=== PATIENT | male | born 1950 | race Hispanic/Latino ===

== ENCOUNTER 2022-04-15 12:40 | Inpatient (IN) | payer MEDICARE ==
[~2022-04-15] VITALS: Ht 170.2 cm; Wt 66.8 kg
[2022-04-15] VITALS (9 sets, daily range): BP systolic 129–161; BP diastolic 68–96
[2022-04-15 13:13] LABS: BASOPHILS % (AUTO) 0.1 % (0.0-5.0); EOSINOPHILS % (AUTO) 0.2 % (0.0-8.0); HEMATOCRIT 23.9 % (42-54); LYMPHOCYTES % (AUTO) 3.4 % (21.0-51.0); MEAN CORPUSCULAR HEMOGLOBIN 30.2 pg (27.0-33.0); MEAN CORPUSCULAR HGB CONC 32.2 g/dL (32.0-36.0); MEAN CORPUSCULAR VOLUME 93.7 fL (79-99); NEUTROPHILS % (AUTO) 89.1 % (40.0-77.0); PLATELET COUNT (AUTO) 294 K/uL (130-400); RED BLOOD CELL COUNT(AUTO) 2.55 MIL/uL (4.50-6.20); RED CELL DISTRIBUTION WIDTH 16.7 % (11.0-15.5); WHITE BLOOD COUNT (AUTO) 8.5 K/uL (4.8-10.8)
[2022-04-15 13:26] LABS: INR 1.01 (0.85-1.15)
[2022-04-15 13:28] LABS: ALBUMIN 2.3 g/dL (3.5-5.0); CREATININE 5.5 mg/dL (0.5-1.5); TOTAL PROTEIN, SERUM 7.5 g/dL (6.0-8.3)
[2022-04-15] MEDS ORDERED: IPRATROPIUM/ALBUTEROL SULFATE 3 ML SOLUTION IH ONE (13:31)
[2022-04-15 13:51] LABS: POTASSIUM 8.4 mmol/L (3.5-5.1)
[2022-04-15] MEDS ORDERED: CALCIUM GLUC 1GM/10ML VIAL ONE (13:59)
[2022-04-15] MEDS ORDERED: DEXTROSE 50%-WATER 50 ML DISP.SYRIN IV ONE (13:59)
[2022-04-15] MEDS ORDERED: INSULIN HUMULIN R 100 UNIT/ML 3ML ONE (13:59)
[2022-04-15] MEDS ORDERED: DEXTROSE 50%-WATER 50 ML DISP.SYRIN IV SCH (14:00)
[2022-04-15] MEDS ORDERED: SODIUM BICARB 50MEQ 50ML VIAL 50 ML ONE (14:00)
[2022-04-15] MEDS ORDERED: ALBUTEROL 0.083% 2.5 MG/3 ML INH IH SCH (14:00)
[2022-04-15] MEDS ORDERED: INSULIN HUMULIN R 100 UNIT/ML 3ML IV ONE (14:00)
[2022-04-15] MEDS ORDERED: ZOSYN 3.375GM +NS 50ML IV ONE (14:00)
[2022-04-15] MEDS ORDERED: CALCIUM GLUC 1GM 1 GM in 0.9%NACL 100ML 100 ML IV SCH (14:00)
[2022-04-15] MEDS ORDERED: SODIUM BICARB 8.4% 50ML SYRINGE IVP ONE (14:00)
[2022-04-15] MEDS ORDERED: [UNRECOGNIZED DRUG - OTHER] IV ONE (14:00)
[2022-04-15 14:38] LABS: APPEARANCE,URINE TURBID (CLEAR); BILIRUBIN,URINE NEGATIVE (NEGATIVE); COLOR,URINE YELLOW (YELLOW); GLUCOSE, URINE (UA) NEGATIVE (NEGATIVE); KETONES,URINE NEGATIVE (NEGATIVE); LEUKOCYTE ESTERASE ,URINE LARGE (NEGATIVE); NITRATE,URINE NEGATIVE (NEGATIVE); OCCULT BLOOD,URINE LARGE (NEGATIVE); PH,URINE 5.5 (5.0-8.0); PROTEIN,URINE 100 mg/dL (NEGATIVE); UROBILINOGEN,URINE 0.2 mg/dL (0.2-1.0)
[2022-04-15 14:49] LABS: ABG BASE EXCESS -5.1 mmol/L (-2.0-3.0); ABG OXYGEN SATURATION 97.9 % (95.0-99.0); ABG PCO2 43 mmHg (35-48)
[2022-04-15 15:00] LABS: BACTERIA,URINE Moderate /HPF (None Seen); MUCUS,URINE Few LPF (None Seen); SQUAMOUS EPITHELIAL CELL,UR Few /HPF (0-2); WBC,URINE 51-100 /HPF (0-1)
[2022-04-15] MEDS ORDERED: VANCOMYCIN 1G/250ML KIT 250 ML IV ONE (16:21)
[2022-04-15] MEDS ORDERED: VANCOMYCIN PROTOCOL PER PHARMACY IV SCH ×2 (16:30)
[2022-04-15] MEDS ORDERED: ZOSYN 3.375GM +NS 50ML IV SCH (16:30)
[2022-04-15] MEDS ORDERED: VANCOMYCIN 1G VIAL IVPB ONE (16:30)
[2022-04-15] MEDS ORDERED: PHARMACY COMMUNICATION MISC SCH (16:30)
[2022-04-15] MEDS ORDERED: HYDRALAZINE 20MG/ML VIAL IV PRN (17:00)
[2022-04-15] MEDS ORDERED: LACTULOSE 20 GM/30 ML UDCUP PO PRN (17:00)
[2022-04-15] MEDS ORDERED: KAYEXALATE 15GM/60ML PO PRN (17:00)
[2022-04-15] MEDS ORDERED: ALBUTEROL 0.083% 2.5 MG/3 ML INH IH PRN (17:00)
[2022-04-15] MEDS ORDERED: ONDANSETRON 4MG INJ IVP PRN (17:00)
[2022-04-15] MEDS: CEFTRIAXONE 1G VIAL IVP SCH (17:21)
[2022-04-15] MEDS ORDERED: NOREPINEPHRIN 4MG/NS 250ML 250 ML IV ONE (17:30)
[2022-04-15] MEDS ORDERED: NOREPINEPHRIN 4MG/NS 250ML 250 ML IV SCH (18:00)
[2022-04-15] MEDS ORDERED: SENN-295 PEG (19:06)
[2022-04-15] MEDS ORDERED: ACET650O3 PEG (19:06)
[2022-04-15] MEDS ORDERED: SPIR25TA6 PEG (19:06)
[2022-04-15] MEDS ORDERED: GABA300S PEG (19:06)
[2022-04-15] MEDS ORDERED: DILT60TA3 PEG (19:06)
[2022-04-15] MEDS ORDERED: ATOR-2 PEG (19:06)
[2022-04-15] MEDS ORDERED: DULA0.75 SQ (19:06)
[2022-04-15] MEDS ORDERED: LEVO500T90 PEG (19:06)
[2022-04-15] MEDS ORDERED: NACL1 PEG (19:06)
[2022-04-15] MEDS ORDERED: FERR220E7 PEG (19:06)
[2022-04-15] MEDS ORDERED: FOLI1 PEG (19:06)
[2022-04-15] MEDS ORDERED: MULT-1387 PEG (19:06)
[2022-04-15] MEDS ORDERED: LISI5TAB21 PEG (19:06)
[2022-04-15] MEDS ORDERED: IPRA3AMP24 IH (19:06)
[2022-04-15] MEDS ORDERED: PANT40GR PEG (19:06)
[2022-04-15] MEDS ORDERED: METR-172 PEG (19:06)
[2022-04-15] MEDS ORDERED: CHOL100046 PEG (19:06)
[2022-04-15] MEDS ORDERED: METO25TA6 PEG (19:06)
[2022-04-15] MEDS ORDERED: ASPI-1197 PEG (19:06)
[2022-04-15] MEDS ORDERED: BACL20TA PEG (19:06)
[2022-04-15] MEDS ORDERED: GUAI100S13 PEG (19:06)
[2022-04-15] MEDS: INSULIN HUMULIN R 100 UNIT/ML 3ML SQ SCH (20:52)
[2022-04-16] VITALS (50 sets, daily range): BP systolic 76–166; BP diastolic 31–96
[2022-04-16] MEDS ORDERED: ZOSYN 3.375GM+NS 50ML 50 ML IV SCH (02:00)
[2022-04-16] MEDS: ACETAMINOPHEN 325 MG TAB PO PRN ×2 (02:19→21:09)
[2022-04-16 04:30] LABS: HEMATOCRIT 23.3 % (42-54); MEAN CORPUSCULAR HEMOGLOBIN 29.9 pg (27.0-33.0); MEAN CORPUSCULAR HGB CONC 32.2 g/dL (32.0-36.0); MEAN CORPUSCULAR VOLUME 92.8 fL (79-99); RED BLOOD CELL COUNT(AUTO) 2.51 MIL/uL (4.50-6.20); RED CELL DISTRIBUTION WIDTH 16.8 % (11.0-15.5); WHITE BLOOD COUNT (AUTO) 8.4 K/uL (4.8-10.8)
[2022-04-16 04:55] LABS: CREATININE 4.4 mg/dL (0.5-1.5); MAGNESIUM 2.1 mg/dL (1.80-2.40); PHOSPHORUS 6.1 mg/dL (2.5-4.9)
[2022-04-16 05:01] LABS: POTASSIUM 6.8 mmol/L (3.5-5.1)
[2022-04-16] MEDS ORDERED: CALCIUM GLUC 1GM/10ML VIAL IV STA (05:12)
[2022-04-16] MEDS ORDERED: FUROSEMIDE 40MG VIAL IV STA (05:12)
[2022-04-16] MEDS ORDERED: SODIUM BICARB 8.4% 50ML SYRINGE IVP STA (05:12)
[2022-04-16] MEDS ORDERED: ALBUTEROL 0.083% 2.5 MG/3 ML INH IH STA (05:12)
[2022-04-16] MEDS ORDERED: DEXTROSE 50%-WATER 50 ML DISP.SYRIN IV STA (05:12)
[2022-04-16] MEDS ORDERED: KAYEXALATE 15GM/60ML PO STA (05:12)
[2022-04-16] MEDS ORDERED: INSULIN HUMULIN R 100 UNIT/ML 3ML IV STA (05:12)
[2022-04-16] MEDS ORDERED: CALCIUM GLUC 1GM/10ML VIAL ONE (05:21)
[2022-04-16] MEDS ORDERED: SODIUM BICARB 50MEQ 50ML VIAL 50 ML ONE (05:23)
[2022-04-16] MEDS ORDERED: DEXTROSE 50%-WATER 50 ML DISP.SYRIN IV ONE (05:24)
[2022-04-16] MEDS ORDERED: FUROSEMIDE 40MG VIAL ONE (05:26)
[2022-04-16] MEDS: AZITHROMYCIN 250 MG TABLET PO SCH (06:00)
[2022-04-16] MEDS ORDERED: GUAIFENESIN-DM 200/20 MG 10 ML PO PRN (06:00)
[2022-04-16] MEDS: IPRATROPIUM/ALBUTEROL SULFATE 3 ML SOLUTION IH SCH ×4 (07:19→23:32)
[2022-04-16] MEDS: INSULIN HUMULIN R 100 UNIT/ML 3ML SQ SCH ×4 (07:30→23:29)
[2022-04-16] MEDS: 0.9%NACL 1000ML 1,000 ML IV SCH ×2 (07:55→18:13)
[2022-04-16 13:41] LABS: CREATININE 4.4 mg/dL (0.5-1.5); POTASSIUM 5.7 mmol/L (3.5-5.1)
[2022-04-16] MEDS: CEFTRIAXONE 1G VIAL IVP SCH (16:22)
[2022-04-16] MEDS ORDERED: SODIUM ZIRCONIUM CYCLOSILICATE 5 GM POWD.PACK PO ONE (19:30)
[2022-04-16 20:10] LABS: CREATININE 4.1 mg/dL (0.5-1.5); POTASSIUM 5.3 mmol/L (3.5-5.1)
[2022-04-16] MEDS ORDERED: VANCOMYCIN 1G/250ML KIT 250 ML IV ONE (23:00)
[2022-04-16] MEDS ORDERED: VANCOMYCIN PROTOCOL PER PHARMACY IV SCH (23:00)
[2022-04-16] MEDS ORDERED: VANCOMYCIN 1G VIAL IVPB ONE (23:00)
[2022-04-16] MEDS: MEROPENEM 1 GM VIAL IVP SCH (23:29)
[2022-04-17] VITALS (36 sets, daily range): BP systolic 79–159; BP diastolic 45–98
[2022-04-17 02:16] LABS: BASOPHILS % (AUTO) 0.1 % (0.0-5.0); EOSINOPHILS % (AUTO) 4.5 % (0.0-8.0); HEMATOCRIT 23.5 % (42-54); LYMPHOCYTES % (AUTO) 12.3 % (21.0-51.0); MEAN CORPUSCULAR HEMOGLOBIN 30.1 pg (27.0-33.0); MEAN CORPUSCULAR HGB CONC 31.9 g/dL (32.0-36.0); MEAN CORPUSCULAR VOLUME 94.4 fL (79-99); MONOCYTES % (AUTO) 7.2 % (3.0-13.0); NEUTROPHILS % (AUTO) 75.5 % (40.0-77.0); PLATELET COUNT (AUTO) 242 K/uL (130-400); RED BLOOD CELL COUNT(AUTO) 2.49 MIL/uL (4.50-6.20); RED CELL DISTRIBUTION WIDTH 17.1 % (11.0-15.5)
[2022-04-17 02:42] LABS: ALBUMIN 2.1 g/dL (3.5-5.0); CREATININE 3.8 mg/dL (0.5-1.5); MAGNESIUM 2.1 mg/dL (1.80-2.40); PHOSPHORUS 5.9 mg/dL (2.5-4.9); POTASSIUM 4.6 mmol/L (3.5-5.1); THYROID STIMULATING HORMONE 0.66 uIU/mL (0.36-3.74); TOTAL PROTEIN, SERUM 7.1 g/dL (6.0-8.3); URIC ACID 8.2 mg/dL (2.6-7.2)
[2022-04-17 03:23] LABS: % IRON SATURATION 13.1 % (30-44)
[2022-04-17] MEDS: INSULIN HUMULIN R 100 UNIT/ML 3ML SQ SCH ×3 (05:50→18:00)
[2022-04-17] MEDS: AZITHROMYCIN 250 MG TABLET PO SCH (05:52)
[2022-04-17] MEDS: IPRATROPIUM/ALBUTEROL SULFATE 3 ML SOLUTION IH SCH ×4 (06:17→23:07)
[2022-04-17 07:36] LABS: ABG BASE EXCESS -0.7 mmol/L (-2.0-3.0); ABG OXYGEN SATURATION 97.9 % (95.0-99.0); ABG PCO2 35 mmHg (35-48)
[2022-04-17 08:33] LABS: CREATININE 3.5 mg/dL (0.5-1.5); POTASSIUM 4.6 mmol/L (3.5-5.1)
[2022-04-17] MEDS ORDERED: VANCOMYCIN 1G/250ML KIT 250 ML IV SCH (09:00)
[2022-04-17] MEDS ORDERED: PHARMACY COMMUNICATION MISC SCH (09:30)
[2022-04-17] MEDS: 0.9%NACL 1000ML 1,000 ML IV SCH ×2 (10:17→23:00)
[2022-04-17] MEDS: MEROPENEM 1 GM VIAL IVP SCH ×2 (10:17→22:41)
[2022-04-17] MEDS: CEFEPIME HCL 2 GM VIAL IVP SCH (13:05)
[2022-04-17 14:24] LABS: CREATININE 2.9 mg/dL (0.5-1.5); POTASSIUM 4.6 mmol/L (3.5-5.1)
[2022-04-18] VITALS: BP 148/62
[2022-04-18] MEDS: CEFEPIME HCL 2 GM VIAL IVP SCH ×2 (01:09→11:08)
[2022-04-18 04:00] VITALS: BP 140/68
[2022-04-18 05:59] LABS: BASOPHILS % (AUTO) 0.1 % (0.0-5.0); EOSINOPHILS % (AUTO) 2.1 % (0.0-8.0); HEMATOCRIT 22.3 % (42-54); LYMPHOCYTES % (AUTO) 9.5 % (21.0-51.0); MEAN CORPUSCULAR HEMOGLOBIN 30.2 pg (27.0-33.0); MEAN CORPUSCULAR HGB CONC 31.8 g/dL (32.0-36.0); MEAN CORPUSCULAR VOLUME 94.9 fL (79-99); MONOCYTES % (AUTO) 5.5 % (3.0-13.0); NEUTROPHILS % (AUTO) 81.9 % (40.0-77.0); PLATELET COUNT (AUTO) 256 K/uL (130-400); RED BLOOD CELL COUNT(AUTO) 2.35 MIL/uL (4.50-6.20); RED CELL DISTRIBUTION WIDTH 17.2 % (11.0-15.5); WHITE BLOOD COUNT (AUTO) 8.2 K/uL (4.8-10.8)
[2022-04-18] MEDS: INSULIN HUMULIN R 100 UNIT/ML 3ML SQ SCH ×5 (06:00→23:50)
[2022-04-18 06:05] LABS: CREATININE 2.3 mg/dL (0.5-1.5); POTASSIUM 4.3 mmol/L (3.5-5.1)
[2022-04-18] MEDS: AZITHROMYCIN 250 MG TABLET PO SCH (06:27)
[2022-04-18 07:00] VITALS: BP 161/56
[2022-04-18] MEDS: IPRATROPIUM/ALBUTEROL SULFATE 3 ML SOLUTION IH SCH ×4 (07:20→23:53)
[2022-04-18] MEDS ORDERED: VANCOMYCIN 1G/250ML KIT 250 ML IV SCH (09:00)
[2022-04-18 11:00] VITALS: BP 149/67
[2022-04-18] MEDS: MEROPENEM 1 GM VIAL IVP SCH ×2 (11:08→23:49)
[2022-04-18] MEDS: 0.9%NACL 1000ML 1,000 ML IV SCH ×2 (11:09→17:55)
[2022-04-18] MEDS: ACETAMINOPHEN 325 MG TAB PO PRN (11:09)
[2022-04-18 15:00] VITALS: BP 142/58
[2022-04-18 19:00] VITALS: BP 143/67
[2022-04-18] MEDS ORDERED: MEROPENEM 1 GM VIAL IVP SCH (19:30)
[2022-04-18] MEDS ORDERED: PHARMACY COMMUNICATION MISC SCH (20:00)
[2022-04-18] MEDS ORDERED: COMPOUND IV MISC 1 EACH IVSOLN MISC PRN (20:30)
[2022-04-18] MEDS: IRON SUCROSE COMPLEX 300 MG in 0.9% NACL 250ML 250 ML IVP SCH (21:52)
[2022-04-19] VITALS: BP 149/58
[2022-04-19 04:00] VITALS: BP 144/54
[2022-04-19 05:08] LABS: BASOPHILS % (AUTO) 0.3 % (0.0-5.0); EOSINOPHILS % (AUTO) 1.2 % (0.0-8.0); HEMATOCRIT 23.4 % (42-54); LYMPHOCYTES % (AUTO) 13.2 % (21.0-51.0); MEAN CORPUSCULAR HEMOGLOBIN 30.5 pg (27.0-33.0); MEAN CORPUSCULAR HGB CONC 31.6 g/dL (32.0-36.0); MEAN CORPUSCULAR VOLUME 96.3 fL (79-99); MONOCYTES % (AUTO) 5.6 % (3.0-13.0); PLATELET COUNT (AUTO) 256 K/uL (130-400); RED BLOOD CELL COUNT(AUTO) 2.43 MIL/uL (4.50-6.20); RED CELL DISTRIBUTION WIDTH 17.1 % (11.0-15.5); WHITE BLOOD COUNT (AUTO) 7.3 K/uL (4.8-10.8)
[2022-04-19 05:26] LABS: CREATININE 1.7 mg/dL (0.5-1.5); MAGNESIUM 1.8 mg/dL (1.80-2.40); TOTAL PROTEIN, SERUM 7.1 g/dL (6.0-8.3)
[2022-04-19] MEDS: INSULIN HUMULIN R 100 UNIT/ML 3ML SQ SCH ×4 (05:35→23:51)
[2022-04-19] MEDS: IPRATROPIUM/ALBUTEROL SULFATE 3 ML SOLUTION IH SCH ×4 (07:10→23:33)
[2022-04-19 08:00] VITALS: BP 148/80
[2022-04-19] MEDS: FLUCONAZOLE 200 MG/NS 100 ML 100 ML IV SCH (09:23)
[2022-04-19] MEDS: MEROPENEM 1 GM VIAL IVP SCH ×2 (11:52→22:46)
[2022-04-19] MEDS: LABETALOL 20MG SYG IV PRN (11:53)
[2022-04-19 12:10] LABS: INR 1.01 (0.85-1.15)
[2022-04-19 12:38] VITALS: BP 199/76
[2022-04-19] MEDS ORDERED: METOPROLOL SUCCINATE 50 MG TAB.SR.24H PO ONE (14:08)
[2022-04-19] MEDS ORDERED: METOPROLOL TARTRATE 50 MG TAB PO SCH (14:30)
[2022-04-19] MEDS: 0.9%NACL 1000ML 1,000 ML IV SCH (15:13)
[2022-04-19 16:51] VITALS: BP 134/87
[2022-04-19] MEDS: METOPROLOL TARTRATE 1 MG/ML 5ML VIAL IV PRN ×3 (18:12→19:01)
[2022-04-19 19:00] VITALS: BP 134/69
[2022-04-19] MEDS ORDERED: METOPROLOL TARTRATE 25 MG TAB PEG SCH (21:00)
[2022-04-19] MEDS: IRON SUCROSE COMPLEX 300 MG in 0.9% NACL 250ML 250 ML IVP SCH (22:47)
[2022-04-20] VITALS (7 sets, daily range): BP systolic 107–188; BP diastolic 47–88
[2022-04-20] MEDS: LABETALOL 20MG SYG IV PRN (04:13)
[2022-04-20] MEDS ORDERED: NEOMY SULF/BACITRA/POLYMYXIN B 1 EACH PACKET TP ONE (05:59)
[2022-04-20] MEDS: INSULIN HUMULIN R 100 UNIT/ML 3ML SQ SCH ×3 (06:00→18:00)
[2022-04-20] MEDS: IPRATROPIUM/ALBUTEROL SULFATE 3 ML SOLUTION IH SCH ×4 (06:54→23:20)
[2022-04-20 06:55] LABS: HEMATOCRIT 24.6 % (42-54); MEAN CORPUSCULAR HEMOGLOBIN 29.4 pg (27.0-33.0); MEAN CORPUSCULAR HGB CONC 31.3 g/dL (32.0-36.0); MEAN CORPUSCULAR VOLUME 93.9 fL (79-99); NUCLEATED RED BLOOD CELLS 0.1 % (0.0-0.19); RED BLOOD CELL COUNT(AUTO) 2.62 MIL/uL (4.50-6.20); RED CELL DISTRIBUTION WIDTH 16.9 % (11.0-15.5); WHITE BLOOD COUNT (AUTO) 13.6 K/uL (4.8-10.8)
[2022-04-20 07:11] LABS: CREATININE 1.4 mg/dL (0.5-1.5); POTASSIUM 3.7 mmol/L (3.5-5.1)
[2022-04-20] MEDS: FLUCONAZOLE 200 MG/NS 100 ML 100 ML IV SCH (08:36)
[2022-04-20] MEDS: ACETAMINOPHEN 325 MG TAB PO PRN (08:36)
[2022-04-20] MEDS: METOPROLOL TARTRATE 25 MG TAB PEG SCH ×2 (08:36→19:35)
[2022-04-20] MEDS: MEROPENEM 1 GM VIAL IVP SCH ×2 (12:29→20:51)
[2022-04-20] MEDS: 0.9%NACL 10ML VIAL IV SCH (19:33)
[2022-04-20] MEDS: IRON SUCROSE COMPLEX 300 MG in 0.9% NACL 250ML 250 ML IVP SCH (19:34)
[2022-04-20] MEDS ORDERED: EPOETIN ALFA-EPBX (NON-ESRD) 10,000 UNIT/ML VIAL SQ SCH (21:00)
[2022-04-21] VITALS (7 sets, daily range): BP systolic 120–159; BP diastolic 58–85
[2022-04-21] MEDS: ACETAMINOPHEN 325 MG TAB PO PRN ×2 (00:16→20:28)
[2022-04-21] MEDS: METOPROLOL TARTRATE 1 MG/ML 5ML VIAL IV PRN (00:16)
[2022-04-21] MEDS ORDERED: DILTIAZEM 50MG VIAL IV ONE (02:24)
[2022-04-21] MEDS ORDERED: DILTIAZEM 125 MG/25 ML INJ 125 MG in 0.9%NACL 100ML 100 ML IV PRN (02:30)
[2022-04-21] MEDS: INSULIN HUMULIN R 100 UNIT/ML 3ML SQ SCH ×4 (05:19→17:00)
[2022-04-21 05:56] LABS: BASOPHILS % (AUTO) 0.2 % (0.0-5.0); HEMATOCRIT 28.7 % (42-54); LYMPHOCYTES % (AUTO) 12.7 % (21.0-51.0); MEAN CORPUSCULAR HEMOGLOBIN 29.6 pg (27.0-33.0); MEAN CORPUSCULAR HGB CONC 30.3 g/dL (32.0-36.0); MEAN CORPUSCULAR VOLUME 97.6 fL (79-99); MONOCYTES % (AUTO) 4.7 % (3.0-13.0); NEUTROPHILS % (AUTO) 78.1 % (40.0-77.0); NUCLEATED RED BLOOD CELLS 0.2 % (0.0-0.19); PLATELET COUNT (AUTO) 235 K/uL (130-400); RED BLOOD CELL COUNT(AUTO) 2.94 MIL/uL (4.50-6.20); RED CELL DISTRIBUTION WIDTH 16.5 % (11.0-15.5)
[2022-04-21 06:27] LABS: ALBUMIN 2.1 g/dL (3.5-5.0); CREATININE 1.2 mg/dL (0.5-1.5); POTASSIUM 3.8 mmol/L (3.5-5.1); TOTAL PROTEIN, SERUM 6.6 g/dL (6.0-8.3)
[2022-04-21] MEDS: IPRATROPIUM/ALBUTEROL SULFATE 3 ML SOLUTION IH SCH ×5 (06:30→23:57)
[2022-04-21] MEDS: METOPROLOL TARTRATE 25 MG TAB PEG SCH ×2 (07:44→20:28)
[2022-04-21] MEDS: FLUCONAZOLE 200 MG/NS 100 ML 100 ML IV SCH (07:44)
[2022-04-21] MEDS: 0.9%NACL 10ML VIAL IV SCH ×2 (07:44→20:28)
[2022-04-21] MEDS: MEROPENEM 1 GM VIAL IVP SCH ×2 (11:37→23:59)
[2022-04-22 02:54] VITALS: BP 150/59
[2022-04-22] MEDS: ACETAMINOPHEN 325 MG TAB PO PRN (04:09)
[2022-04-22] MEDS: INSULIN HUMULIN R 100 UNIT/ML 3ML SQ SCH ×5 (05:21→23:53)
[2022-04-22] MEDS: IPRATROPIUM/ALBUTEROL SULFATE 3 ML SOLUTION IH SCH ×4 (06:32→23:07)
[2022-04-22 08:39] VITALS: BP 148/64
[2022-04-22] MEDS: FLUCONAZOLE 200 MG/NS 100 ML 100 ML IV SCH (09:36)
[2022-04-22] MEDS: 0.9%NACL 10ML VIAL IV SCH ×2 (09:36→20:46)
[2022-04-22] MEDS: METOPROLOL TARTRATE 25 MG TAB PEG SCH ×2 (09:37→20:47)
[2022-04-22] MEDS: MEROPENEM 1 GM VIAL IVP SCH ×2 (11:50→23:26)
[2022-04-22 12:15] VITALS: BP 150/96
[2022-04-22 16:36] VITALS: BP 149/76
[2022-04-22 18:56] VITALS: BP 131/98
[2022-04-22 22:57] VITALS: BP 144/89
[2022-04-23 03:16] VITALS: BP 141/90
[2022-04-23 04:00] LABS: CREATININE 1.1 mg/dL (0.5-1.5); POTASSIUM 3.7 mmol/L (3.5-5.1)
[2022-04-23] MEDS: INSULIN HUMULIN R 100 UNIT/ML 3ML SQ SCH ×3 (06:00→23:42)
[2022-04-23] MEDS: IPRATROPIUM/ALBUTEROL SULFATE 3 ML SOLUTION IH SCH ×4 (06:22→23:39)
[2022-04-23 07:00] VITALS: BP 150/67
[2022-04-23] MEDS: METOPROLOL TARTRATE 25 MG TAB PEG SCH ×2 (09:02→20:22)
[2022-04-23] MEDS: 0.9%NACL 10ML VIAL IV SCH ×2 (09:02→20:22)
[2022-04-23] MEDS: FLUCONAZOLE 200 MG/NS 100 ML 100 ML IV SCH (09:02)
[2022-04-23] MEDS: MEROPENEM 1 GM VIAL IVP SCH ×2 (10:21→22:42)
[2022-04-23 11:00] VITALS: BP 160/83
[2022-04-23 16:00] VITALS: BP 166/82
[2022-04-23 19:00] VITALS: BP 149/75
[2022-04-24] VITALS: BP 162/74
[2022-04-24 03:00] VITALS: BP 152/81
[2022-04-24] MEDS: INSULIN HUMULIN R 100 UNIT/ML 3ML SQ SCH ×3 (06:00→18:00)
[2022-04-24] MEDS: IPRATROPIUM/ALBUTEROL SULFATE 3 ML SOLUTION IH SCH ×3 (06:17→18:19)
[2022-04-24 08:36] LABS: MEAN CORPUSCULAR HEMOGLOBIN 30.9 pg (27.0-33.0); MEAN CORPUSCULAR VOLUME 96.5 fL (79-99); NUCLEATED RED BLOOD CELLS 0.2 % (0.0-0.19); PLATELET COUNT (AUTO) 197 K/uL (130-400); RED BLOOD CELL COUNT(AUTO) 2.59 MIL/uL (4.50-6.20); RED CELL DISTRIBUTION WIDTH 17.5 % (11.0-15.5); WHITE BLOOD COUNT (AUTO) 8.8 K/uL (4.8-10.8)
[2022-04-24 08:38] VITALS: BP 155/72
[2022-04-24 08:51] LABS: ALBUMIN 2.2 g/dL (3.5-5.0); CREATININE 0.9 mg/dL (0.5-1.5); POTASSIUM 3.4 mmol/L (3.5-5.1); TOTAL PROTEIN, SERUM 6.3 g/dL (6.0-8.3)
[2022-04-24] MEDS: METOPROLOL TARTRATE 25 MG TAB PEG SCH ×2 (09:00→09:04)
[2022-04-24] MEDS: FLUCONAZOLE 200 MG/NS 100 ML 100 ML IV SCH (09:03)
[2022-04-24] MEDS: 0.9%NACL 10ML VIAL IV SCH (09:04)
[2022-04-24 10:19] LABS: BAND NEUTROPHILS % (MANUAL) 1 % (0-2); EOSINOPHILS % (MANUAL) 4 % (1-6); LYMPHOCYTES % (MANUAL) 13 % (22-44); MAN.DIFF COMMENT-IMPRESSION MANUAL DIFFERENTIAL; MONOCYTES % (MANUAL) 3 % (2-9); SEGMENTED NEUTROPHILS % 79 % (40-70)
[2022-04-24 10:20] LABS: PLATELET MORPHOLOGY COMMENT ADEQUATE
[2022-04-24] MEDS: MEROPENEM 1 GM VIAL IVP SCH (10:51)
[2022-04-24] MEDS ORDERED: POTASSIUM CHLORIDE 20MEQ/100ML 100 ML IV PRN (11:30)
[2022-04-24] MEDS ORDERED: KCL 20 MEQ ERTAB PO PRN (11:30)
[2022-04-24] MEDS ORDERED: LIDOCAINE HCL-MPF 1% 2ML VIAL IV PRN (11:30)
[2022-04-24 12:23] VITALS: BP 138/86
[2022-04-24] MEDS: POTASSIUM CHLORIDE 10% ELIXIR 20 MEQ/15 ML UDCUP PO PRN ×2 (12:57→15:40)
[2022-04-24 16:29] VITALS: BP 151/79
[2022-04-24 19:00] VITALS: BP 146/66
== END 2022-04-24 16:00 | DRG 871 ==
LOC: EDH 12:40 → EDHIP 16:18 → 2BH 17:39 → 3CH 04-17 22:50 → 2DH 04-21 02:25
PROVIDERS: ADMIT Internal Medicine; ATTEND Internal Medicine
DX: A41.9 Sepsis, unspecified organism (principal); E43 Unspecified severe protein-calorie malnutrition; J18.9 Pneumonia, unspecified organism; J96.01 Acute respiratory failure with hypoxia; R65.21 Severe sepsis with septic shock; N17.9 Acute kidney failure, unspecified; N39.0 Urinary tract infection, site not specified; Z16.12 Extended spectrum beta lactamase (ESBL) resistance; E87.5 Hyperkalemia; F03.90 Unspecified dementia, unspecified severity, without behavioral disturbance, psychotic disturbance, mood disturbance, and anxiety; D64.9 Anemia, unspecified; I48.0 Paroxysmal atrial fibrillation; I12.9 Hypertensive chronic kidney disease with stage 1 through stage 4 chronic kidney disease, or unspecified chronic kidney disease; N18.9 Chronic kidney disease, unspecified; B95.2 Enterococcus as the cause of diseases classified elsewhere; R63.30 Feeding difficulties, unspecified; E11.22 Type 2 diabetes mellitus with diabetic chronic kidney disease; Z20.822 Contact with and (suspected) exposure to COVID-19; D63.8 Anemia in other chronic diseases classified elsewhere; I25.10 Atherosclerotic heart disease of native coronary artery without angina pectoris; R13.12 Dysphagia, oropharyngeal phase; Z95.1 Presence of aortocoronary bypass graft; Z93.3 Colostomy status; Z86.73 Personal history of transient ischemic attack (TIA), and cerebral infarction without residual deficits; Z74.01 Bed confinement status; Z79.899 Other long term (current) drug therapy; Z93.1 Gastrostomy status; Z82.49 Family history of ischemic heart disease and other diseases of the circulatory system; Z68.23 Body mass index [BMI] 23.0-23.9, adult
CPT/HCPCS: 31720; 36415; 36600; 70450; 71045; 76700; 76770; 80048; 80053; 81001; 82270; 82550; 82728; 82803; 82948; 83540; 83550; 83605; 83735; 83880; 84100; 84132; 84145; 84443; 84484; 84550; 85025; 85027; 85610; 85730; 86850; 86900; 86901; 87040; 87071; 87077; 87088; 87186; 87205; 87635; 93005; 94640; 94664; 97039; 99291; C1751; C1894; C9803; G0378; J0610; J0692; J0696; J1450; J1756; J1815; J1940; J2185; J2543; J3370; J3490; J7030; J7050; J7070